=== PATIENT | female | born 1945 | race Caucasian/White ===

== ENCOUNTER 2024-08-20 21:00 | Emergency (ER) | payer BC ==
[~2024-08-20] VITALS: Ht 165.1 cm; Wt 89.8 kg
[2024-08-21] MEDS ORDERED: NITR100C6 PO (00:09)
[2024-08-21] MEDS ORDERED: NITROFURANTOIN/MONOHYDRATE MACROCRYSTALS 100 MG CAPSULE ONE (00:10)
[2024-08-21] MEDS: NITROFURANTOIN/MONOHYDRATE MACROCRYSTALS 100 MG CAPSULE PO ONE (00:16)
[2024-08-21 01:01] VITALS: BP 112/65; O2SAT 94
== END 2024-08-21 01:02 | disposition home or self-care (01) ==
LOC: EDUNIT# 21:00 → ER 21:07
DX: N39.0 Urinary tract infection, site not specified (principal); M19.90 Unspecified osteoarthritis, unspecified site